=== PATIENT | female | born 1950 | race Caucasian/White ===

== ENCOUNTER 2016-12-11 10:21 | Outpatient (CLI) | payer OTHER | END 2016-12-11 10:22 | disposition home or self-care (01) | LOC: DTY/OP 10:21 | PROVIDERS: ATTEND Specialist | DX: Z01.818 Encounter for other preprocedural examination (principal); E66.01 Morbid (severe) obesity due to excess calories | CPT/HCPCS: 97802 ==

== ENCOUNTER 2017-01-02 10:48 | Outpatient (CLI) | payer OTHER ==
--- NOTE | 2017-01-02 12:44 | HP ---
HISTORY OF PRESENT ILLNESS: Shira Stewart is a 66-year-old female who lives in [place], status post 04/27/2010 laparoscopic standard adjustable gastric band placed for morbid obesity, body mass i ndex 36, elevated cholesterol and triglycerides, sleep apnea and a history of mild reflux. During t [facility] evaluation, patient had a cardiac stress test which was negative. She was asymptomatic. She choi d seen Dr. Block in the past. I saw her more recently due to intolerance of gastric band because of reflux symptoms. I saw her on 11/07/2016. She had had multiple band adjustments, but continues to have problems with dysphagia and reflux. She had more than 10 mL in her band. She reports not havi ng significant reflux before her band was placed. Her reflux prior to band placement was no more th an that expected for any of the general population. At that visit, she was 32 BMI, 179 pounds. She has seen previously the psychologist in 2010 that was not repeated. She did meet with a nutritioni st regarding the sleeve gastrectomy diet and did have repeat laboratories, all of which was essentia lly normal. Today, the patient's band was deflated, 11 mL of fluid. It was left emptied. Plan is for laparoscopic removal of band and conversion to a sleeve gastrectomy. I had a discussion with he r today regarding reflux issues and that if she has significant reflux that a Pavithra-en-Y gastric bypa ss was the ideal procedure, but she was not interested in that. I believe her reflux is all due to her band and then once her band was removed, resolving of reflux will not be a problem. She is in a greement. MEDICATIONS: Multivitamin daily and baby aspirin daily. PAST MEDICAL HISTORY: Elevated cholesterol, sleep apnea, headaches, GERD related to her band. PAST SURGICAL HISTORY: Hysterectomy in 2000, laparoscopic adjustable band on 04/27/2010. FAMILY HISTORY: Father . Mother alive and healthy. Brother in a motor vehicle lamar ion. ALLERGIES: None. TOBACCO: None. ALCOHOL: Rarely to none. REVIEW OF SYSTEMS: Ten point noncontributory. PHYSICAL EXAMINATION: VITAL SIGNS: Height 5 foot 2, weight 170 pounds, 31 BMI, 129/72, 77, 98.6 degrees. HEENT: Unremarkable. LUNGS: Clear to auscultation. CARDIAC: Regular rate and rhythm without murmur or gallop. ABDOMEN: Soft, nontender, no masses. Band in place, alcohol prep was used 10 mL, fluid aspirated f rom the band with a Reyes needle. EXTREMITIES: Unremarkable. ASSESSMENT AND PLAN: Morbid obesity, elevated cholesterol, sleep apnea, intolerant of gastric band. Plan, removal of band, laparoscopic conversion to laparoscopic sleeve gastrectomy. The risks of i nfection, bleeding, reoperation, elevated risk of leakage and other complications relative to revisi onal status were explained and questions answered.
== END 2017-01-02 10:49 | disposition home or self-care (01) ==
LOC: LABBT 10:48
PROVIDERS: ATTEND Specialist
DX: Z01.818 Encounter for other preprocedural examination (principal); E66.01 Morbid (severe) obesity due to excess calories
CPT/HCPCS: 93005; 93010

== ENCOUNTER 2017-01-14 14:21 | Emergency (ER) | payer OTHER ==
[2017-01-14] MEDS ORDERED: Ondansetron HCl/PF 4 MG/2 ML Vial ONE (14:51)
[2017-01-14 14:57] LABS: #Eosinphils 0.1 thou/uL (0.0-0.7); #Lymphocytes 0.9 thou/uL (1.20-3.40); #Monocytes 0.6 thou/uL (0.11-0.59); #Neutrophils 6.1 thou/uL (1.40-6.50); %Basophils 0.1 % (0.0-1.0); %Eosinophils 1.6 % (0.0-10.0); %Lymphocytes 11.3 % (21.0-51.0); Hematocrit 33.4 % (36.0-47.0); Mean Platelet Volume 6.5 fL (7.4-10.4); Red Blood Cell (RBC) Count 3.76 mill/uL (4.20-5.40); White Blood Cell (WBC) Count 7.7 thou/uL (4.8-10.8)
[2017-01-14] MEDS ORDERED: Ketorolac Tromethamine 30 MG/ML VIAL ONE (15:13)
--- NOTE | 2017-01-14 15:24 | CT ---
ABDOMEN AND PELVIC CT SCAN WITHOUT IV CONTRAST: History: 67-year-old female with abdominal pain with nausea and vomiting and fever following a gastric sleeve . FINDINGS: There is a small left pleural effusion. There are bibasilar pulmonary and parenchymal changes, evide nce for subsegmental atelectasis. There are changes consistent with a history of gastric sleeve. 3 c m cyst in the upper central liver. There is some fluid within a minimally dilated esophagus. There i s an approximately 2.6 x 3.2 cm diameter area of fluid with one tiny punctate gas collection noted b etween the post-operative stomach and the left lobe of the liver. This area of fluid collection exte nds down to near the level of the body of the pancreas. No significant free intraperitoneal fluid. T here is at least one other smaller liver cyst. No evidence for renal calculi or acute obstruction . Colonic diverticulosis without acute diverticulitis. Recent post-operative changes involving the l eft anterior abdominal wall. IMPRESSION: Left pleural effusion and bibasilar pulmonary and parenchymal changes, evidence for bilateral subseg mental atelectasis. Recent post op gastric sleeve surgery with some fat stranding in the upper abdom en and epigastric region and left upper quadrant as well as post-operative changes in the anterior u pper abdominal wall. An approximately 2.6 x 3.2 cm diameter fluid collection with one or two tiny pu nctate foci of gas between the post-operative stomach and the left lobe of the liver, somewhat more closed related to the lateral aspect of the left lobe of the liver, probably small post-operative fl uid collection. Two small liver cysts. No renal calculus or acute obstruction. No significant rody e intraperitoneal fluid. No evidence for other significant acute process. Depending on patient's sym ptoms, a short term follow up study over the next several days or week might be of benefit for [facility] er assessing this. POS: GALE
[2017-01-14 15:40] LABS: ALT (SGPT) 183 U/L (8-55); AST (SGOT) 39 U/L (5-34); Alkaline Phosphatase 76 U/L (40-150); Anion Gap 19 mmol/L (10-20); BUN (Urea Nitrogen) 9 mg/dL (9.8-20.1); Bilirubin, Total 0.4 mg/dL (0.2-1.2); CK (CPK) 97 U/L (29-168); Calc. Creatinine Clearance 0 mL/min (70-130); Calcium 9.3 mg/dL (7.8-10.44); Carbon Dioxide 18 mmol/L (23-31); Chloride 104 mmol/L (98-107); Estimated GFR-MDRD Greater than 90; Globulin 3.2 g/dL (2.4-3.5); Lipase 24 U/L (8-78); Protein, Total 7.1 g/dL (6.0-8.3)
== END 2017-01-14 16:20 | disposition home or self-care (01) ==
LOC: ERS 14:21
DX: K95.09 Other complications of gastric band procedure (principal); E86.0 Dehydration
CPT/HCPCS: 74176; 80053; 82550; 83690; 85025; 96361; 96374; 96375; J1885; J2405